=== PATIENT | male | born 1940 | race Caucasian/White ===

== ENCOUNTER 2018-11-02 13:58 | Inpatient (IN) | payer MEDICARE ==
[~2018-11-02] VITALS: Ht 172.7 cm; Wt 93.9 kg
[2018-11-03 00:30] VITALS: BP 152/69
[2018-11-03] MEDS ORDERED: TEMAZEPAM 7.5 MG CAPSULE PO PRN (00:30)
[2018-11-03] MEDS ORDERED: MAGNESIUM HYDROXIDE 30 ML UDC PO PRN (00:30)
[2018-11-03] MEDS ORDERED: LORAZEPAM 0.5 MG TABLET PO PRN (00:30)
[2018-11-03] MEDS ORDERED: ACETAMINOPHEN 325 MG TABLET PO PRN (00:30)
[2018-11-03] MEDS ORDERED: MAG HYDROX/AL HYDROX/SIMETH 30 ML UDC PO PRN (00:30)
--- NOTE | 2018-11-03 00:30 | NUR ---
GPS RN ADMITTING NOTES: ADMITTED A 78YO MALE FROM [facility] ON 5150 HOLD FOR DANGER TO SELF. PER HOLD THE PATIENT IS EXPRESSING SUICIDAL IDEATION, WANTING TO KILL HIMSELF, WITH A PLAN TO BUY A GUN AND SHOOT HIMSELF. PATIENT IS UNDER THE CARE OF DR. RICKS AND JOSETTE LILLY FOR [facility]. PATIENT WALKED INTO THE UNIT AMBULATORY, USHERED BY AMBULANCE STAFF, THEN USHERED INTO THE ROOM. UPON FACE TO FACE EVALUATION PATIENT PRESENTS ALERT AND ORIENTED X1-2, UNKEMPT, DISHEVELED, DISORGANIZED, CONFUSED. DELUSIONAL AND PARANOID. PATIENT INSISTS ON LEAVING THE UNIT.SECURITY PERSONNEL WERE CALLED TO HELP STAFF IN MAKING THE PATIENT SETTLE IN HIS BED. PATIENT REFUSED TO HAVE HIS VITAL SIGNS TAKEN INITIALLY. PATIENT REFUSED TO HAVE HIS FACE PHOTO TAKEN, HE FURTHER REFUSED TO HAVE FULL SKIN AND BODY ASSESSMENT CHECKED, HOWEVER NURSE WAS ABLE TO VISUALLY CHECKED THE REDNESS ON HIS SACRAL AREA, NO OPEN WOUND NOTED. AROUND 0050, PATIENT STARTED TO BE SCREAMING AND YELLING AT STAFF, KICKING AND GRABBING THE CLOTHES OF THE STAFF,REFUSING TO FOLLOW DIRECTIONS. NURSE TRIED TO DO HIS ACCUCHECK FOR BASELINE PURPOSES, PATIENT ALMOST HIT THE STAFF THAT WAS HELPING HIM. FIXTURE REPAIRER FABRICATORMARIAN CALLED DR. RICKS FOR AN IM SHOT. HE THEN GAVE ORDERS FOR ZYPREXA 5MG IM, GIVEN ORDERED. PATIENT WAS BEING HELD BY STAFF AND SECURITY PERSONNEL. PATIENT REFUSED TO HAVE VITAL SIGNS RECHECKED. CARE PLAN INITIATED. Q15 MIN CHECKS INITIATED. BELONGINGS AND CONTRABAND CHECKED. SAFETY AND FALL PRECAUTIONS OBSERVED. WILL FOLLOW UP FOR MED RECON. WILL MONITOR PATIENT FOR MOOD, SAFETY AND BEHAVIOR. WILL ENDORSE TO DAY SHIFT NURSE.
[2018-11-03] MEDS ORDERED: OLANZAPINE 10 MG VIAL IM ONE (01:00)
[2018-11-03] MEDS ORDERED: GLIP5TAB13 PO (04:01)
[2018-11-03] MEDS ORDERED: METF-442 PO (04:01)
[2018-11-03 08:00] VITALS: BP 117/58
[2018-11-03 08:10] LABS: ALANINE AMINOTRANSFERASE 23 U/L (12-78); ALBUMIN 3.3 g/dL (3.4-5.0); ALKALINE PHOSPHATASE 110 U/L (46-116); ASPARTATE AMINOTRANSFERASE 20 U/L (15-37); BILIRUBIN,TOTAL 0.8 mg/dL (0.2-1.0); CALCIUM, SERUM 8.5 mg/dL (8.5-10.1); CARBON DIOXIDE 22 mmol/L (21-32); CHLORIDE 102 mmol/L (98-107); CREATININE 1.7 mg/dL (0.6-1.3); POTASSIUM 4.8 mmol/L (3.5-5.1); SODIUM SERUM 133 mmol/L (136-145); TOTAL PROTEIN, SERUM 6.4 g/dL (6.4-8.2); UREA NITROGEN, BLOOD 32 mg/dL (7-18)
[2018-11-03 08:22] LABS: GLUCOSE 406 mg/dL (74-106)
[2018-11-03] MEDS ORDERED: DEXTROSE 50%-WATER 50 ML DISP.SYRIN IV PRN (13:00)
--- NOTE | 2018-11-03 13:00 | NUR ---
GPS.RR. PT REFUSING ACCU CHECK AT THIS TIME. WILL TRY AGAIN. INSURANCE CLAIMS ADJUSTER AWARE FO CRITICAL HIGH.
[2018-11-03] MEDS: BLOOD SUGAR DIAGNOSTIC 1 EACH STRIP VI SCH ×3 (14:09→21:55)
[2018-11-03] MEDS: *INSULIN REGULAR(HUMULIN R)HUM 100 UNIT/ML VIAL SQ PRN (14:23)
[2018-11-03 16:00] VITALS: BP 129/81
[2018-11-03] MEDS: INSULIN REGULAR, HUMAN 100 UNIT/ML 3 ML VIAL SQ PRN (17:32)
[2018-11-03 20:17] VITALS: BP 121/51
--- NOTE | 2018-11-03 22:10 | NUR ---
GPS RN NOTE: PATIENT BLOOD SUGAR LEVEL 102MG/DL, NO INSULIN NEEDED PER SLIDING SCALE. NO S/S OF HYPER/HYPOGLYCEMIA NOTED. SNACKS AT BEDSIDE. WILL CONTINUE TO MONITOR.
[2018-11-04 07:26] LABS: BASOPHILS % (AUTO) 0.4 % (0.0-2.0); EOSINOPHILS % (AUTO) 2.9 % (0.0-6.0); HEMATOCRIT 49 % (39-51); LYMPHOCYTES # (AUTO) 2.1 /CMM (0.8-4.8); LYMPHOCYTES % (AUTO) 31.5 % (20.0-44.0); MEAN CORPUSCULAR HGB CONC 35 g/dl (31.0-36.0); MEAN CORPUSCULAR VOLUME 92 fL (80-96); MONOCYTES # (AUTO) 0.6 /CMM (0.1-1.30); MONOCYTES % (AUTO) 9.1 % (2.0-12.0); NEUTROPHILS # (AUTO) 3.8 /CMM (1.8-8.9); NEUTROPHILS % (AUTO) 56.1 % (43.0-81.0); PLATELET COUNT (AUTO) 140 /CMM (150-450); RED BLOOD CELL COUNT(AUTO) 5.37 MIL/uL (4.5-6.0); WHITE BLOOD COUNT (AUTO) 6.8 K/uL (4.3-11.0)
[2018-11-04 07:48] LABS: ALBUMIN 3.2 g/dL (3.4-5.0); CALCIUM, SERUM 9.1 mg/dL (8.5-10.1); CARBON DIOXIDE 28 mmol/L (21-32); CHLORIDE 103 mmol/L (98-107); CREATININE 1.2 mg/dL (0.6-1.3); GLUCOSE 193 mg/dL (74-106); MAGNESIUM 1.7 mg/dL (1.8-2.4); PHOSPHORUS 3.1 mg/dL (2.5-4.9); SODIUM SERUM 140 mmol/L (136-145); UREA NITROGEN, BLOOD 21 mg/dL (7-18)
[2018-11-04] MEDS: BLOOD SUGAR DIAGNOSTIC 1 EACH STRIP VI SCH ×4 (07:53→21:58)
[2018-11-04 08:00] VITALS: BP 111/75
[2018-11-04 08:02] LABS: CHOLESTEROL 190 mg/dL (<200); CREATINE KINASE, TOTAL 318 U/L (39-308); HDL CHOLESTEROL 53 mg/dL (40-60); LDL 114 mg/dL (0-99); THYROID STIMULATING HORMONE 0.579 uIU/mL (0.358-3.74); TRIGLYCERIDES 140 mg/dL (30-150)
[2018-11-04] MEDS: SERTRALINE HCL 25 MG TABLET PO SCH (08:33)
--- NOTE | 2018-11-04 11:00 | NUR ---
INITIAL DISCHARGE PLAN" Patient wishes to return home to [address] [place] [address] [place] [address] . SW will help form a safe and proper discharge in collaboration with .
--- NOTE | 2018-11-04 11:01 | NUR ---
GAYATHRI contacted pts ex Grisel [phone] to inform her pt is currently hospitalized. Grisel stated she is aware and also stated she will be coming this afternoon to visit pt. Grisel also informed GAYATHRI that pt does not have help at home. GAYATHRI stated that she will refer pt to home health once discharged. Grisel agreed.
[2018-11-04] MEDS ORDERED: MAGNESIUM OXIDE 400 MG TABLET PO ONE (12:00)
[2018-11-04] MEDS: INSULIN REGULAR, HUMAN 100 UNIT/ML 3 ML VIAL SQ PRN ×2 (12:29→17:44)
[2018-11-04 16:00] VITALS: BP 137/71
[2018-11-04 20:05] VITALS: BP 136/70
[2018-11-04] MEDS: *INSULIN REGULAR(HUMULIN R)HUM 100 UNIT/ML VIAL SQ PRN (22:53)
--- NOTE | 2018-11-05 07:43 | NUR ---
GPS RN NOTES RECEIVED PT LAYING IN BED, RESTING COMFORTABLY. PT AWAKE AND ALERT. RESPIRATIONS ARE EVEN AND UNLABORED, NOT IN ANY ACUTE DISTRESS NOTED. PT DENIES ANY PAIN AT THIS TIME, NO C/O SOB, N/V. NO IV ACCESS. PT ABLE TO MAKE NEEDS KNOWN. SAFETY MEASURES ARE IN PLACE. WILL MONITOR THROUGHOUT SHIFT FOR CONTINUITY OF CARE.
[2018-11-05 08:00] VITALS: BP 149/65
[2018-11-05 08:18] LABS: CALCIUM, SERUM 8.8 mg/dL (8.5-10.1); CARBON DIOXIDE 29 mmol/L (21-32); CHLORIDE 102 mmol/L (98-107); CREATININE 0.9 mg/dL (0.6-1.3); GLUCOSE 172 mg/dL (74-106); MAGNESIUM 1.8 mg/dL (1.8-2.4); POTASSIUM 3.4 mmol/L (3.5-5.1); SODIUM SERUM 139 mmol/L (136-145); UREA NITROGEN, BLOOD 17 mg/dL (7-18)
[2018-11-05] MEDS: BLOOD SUGAR DIAGNOSTIC 1 EACH STRIP VI SCH ×4 (08:18→21:29)
[2018-11-05] MEDS: SERTRALINE HCL 25 MG TABLET PO SCH (08:18)
[2018-11-05] MEDS: INSULIN REGULAR, HUMAN 100 UNIT/ML 3 ML VIAL SQ PRN ×3 (08:19→16:58)
[2018-11-05] MEDS ORDERED: POTASSIUM CHLORIDE 20 MEQ TAB.PRT.SR PO SCH (12:06)
[2018-11-05 12:09] LABS: PTH, INTACT 23 pg/mL (15-65)
--- NOTE | 2018-11-05 13:36 | NUR ---
DISCHARGE PLANNING: SW and Psychiatrist Dr. Turcios (covering Dr. Krishnan on this present day) met with pt to discuss pt being discharged to a SNF short term before returning home due to pt not having support at home or anyone to care for him. Pt was confused by the conversation and did not comprehend what was being told to him.
[2018-11-05 14:12] LABS: *SPE A/G RATIO 1.2 (0.7-1.7); *SPE ALBUMIN 3.3 g/dL (2.9-4.4); *SPE ALPHA-1-GLOBULIN 0.2 g/dL (0.0-0.4); *SPE ALPHA-2-GLOBULIN 0.7 g/dL (0.4-1.0); *SPE BETA GLOBULIN 1.1 g/dL (0.7-1.3); *SPE GLOBULIN, TOTAL 2.8 g/dL (2.2-3.9); *SPE M-SPIKE Not Observed g/dL (Not Observed); *SPEGAMMA GLOBULIN 0.8 g/dL (0.4-1.8)
[2018-11-05 16:00] VITALS: BP 141/63
[2018-11-05 20:00] VITALS: BP 148/84
[2018-11-05] MEDS: *INSULIN REGULAR(HUMULIN R)HUM 100 UNIT/ML VIAL SQ PRN (21:31)
--- NOTE | 2018-11-05 21:35 | NUR ---
ACCUCHECK 137 MG/DL, 2 UNITS REGULAR INSULIN SC ADMINISTERED, HAD A SANDWICH FOR SNACKS.
--- NOTE | 2018-11-05 22:46 | NUR ---
OFFERED SLEEPING PILL AND ASKED FOR IT, HE REFUSED AFTER MEDICATION WAS PREPARED, STATED, " I'M SORRY, I GOT CONFUSED."
[2018-11-06 07:19] LABS: CARBON DIOXIDE 26 mmol/L (21-32); CHLORIDE 101 mmol/L (98-107); GLUCOSE 183 mg/dL (74-106); POTASSIUM 3.9 mmol/L (3.5-5.1); SODIUM SERUM 137 mmol/L (136-145); UREA NITROGEN, BLOOD 23 mg/dL (7-18)
[2018-11-06] MEDS: BLOOD SUGAR DIAGNOSTIC 1 EACH STRIP VI SCH ×4 (07:31→21:16)
[2018-11-06 08:00] VITALS: BP 151/74
[2018-11-06] MEDS: SERTRALINE HCL 25 MG TABLET PO SCH ×3 (08:59→10:01)
[2018-11-06] MEDS: INSULIN REGULAR, HUMAN 100 UNIT/ML 3 ML VIAL SQ PRN ×3 (09:05→17:48)
--- NOTE | 2018-11-06 11:56 | NUR ---
PROBABLE CAUSE HEARING: Pts 5250 was not upheld and is now placed on VOLUNTARY admission. Pt wishes to return home.
--- NOTE | 2018-11-06 12:04 | NUR ---
DISCHARGE PLANNING: GAYATHRI contacted pts ex Grisel [phone] to inform her pts hold was not upheld and is now placed on VOLUNTARY admission. Ex stated that she is unable to pick pt up and transport home and stated pt should not be going home and instead be discharged to a SNF. I explained that pt is refusing to go a SNF. Ex- stated pt returning home is a bad idea. GAYATHRI explained that chief environmental commitment officer stated pt has the right to return home and hospital is unable to force pt to be discharged to a SNF.
--- NOTE | 2018-11-06 12:13 | NUR ---
TRANSPORT: GAYATHRI contacted [place] [facility] Certified Ophthalmic Assistant with [facility] [phone] to coordinate discharge and he stated he would return GAYATHRI's call.
--- NOTE | 2018-11-06 12:52 | NUR ---
GAYATHRI faxed SNF referral to Maeve, office services coordinator at [facility] Address: [address] [place] [address] for review.
--- NOTE | 2018-11-06 13:43 | NUR ---
PT. WITH CERTIFICATION REVIEW HEARING. THE PATIENT, AFTER TALKING WITH THE ADVOCATE, HAS DECIDED TO: BE PRESENT AT THE CERTIFICATION REVIEW HEARING. AFTER CONSIDERING ALL THE EVIDENCE PRESENTED, THE HEARING REFEREE FINDS THAT: THERE IS NOT PROBABLE CAUSE TO BELIEVE THAT THE PERSON, A RESULT OF A MENTAL DISORDER IS: A DANGER TO OTHERS OR GRAVELY DISABLED. THE PATIENT MUST BE RELEASED OR REMAIN AT THE FACILITY ON VOLUNTARY BASIS. PT. SIGNED VOLUNTARY. PSYCHIATRIST MADE AWARE. Addendum: 11/06/18 at 1350 by FUAD DIAZ RN ADDENDUM: NOT ALSO A DANGER TO SELF.
--- NOTE | 2018-11-06 14:31 | NUR ---
APS REPORT: GAYATHRI contacted [facility] [phone] and spoke with Linda who took report for self-neglect. GAYATHRI informed her pt will be discharged home tomorrow Friday11/07/18 and needs support at home. Linda took report.
--- NOTE | 2018-11-06 14:33 | NUR ---
SW received a call from [place] [facility] [employer] Mill Operator with [facility] [phone] who stated he has scheduled transportation for pt home for tomorrow at 11:00am.
--- NOTE | 2018-11-06 14:34 | NUR ---
GAYATHRI contacted pts ex Grisel [phone] to inform her pt will be transported home tomorrow by [facility]. GAYATHRI also informed her she filed an APS report.
--- NOTE | 2018-11-06 14:59 | NUR ---
GAYATHRI faxed home health referral to [facility] Address: [address] .
--- NOTE | 2018-11-06 15:00 | NUR ---
DISCHARGE NOTE: Pt will be discharged on Wednesday November 07, 2018 at 11:00am via [facility] home to [address] [address] [place], [place] [address] . Pts ex Grisel [phone] has been notified and does not agree with discharge plan. Pts mood is euthymic with congruent affect. Pt denied visual/auditory hallucinations and denied suicidal/homicidal ideation. SW faxed home health referral and also filed and APS report. Pt was given a referral to [facility] [address], [place] [phone] where he stated he will present himself on Friday November 09, 2018 at 9:00am for an intake. Pt will also schedule a follow up appointment with Histotechnologist Supervisor: Dr. Aris Squires [address] [place] [phone]. The multidisciplinary exitcare form was done, printed, signed, and given to the patient.
[2018-11-06 16:00] VITALS: BP 144/68
--- NOTE | 2018-11-06 19:15 | NUR ---
GPS/RN-NOTES URINE WAS COLLECTED AND SEND TO LAB.PATIENT IN THE ROOM AWAKE,ALERT LAYING IN BED,NO ACUTE DISTRESS NOTED. ENDORSE TO NEXT SHIFT FOR CONTINUITY OF CARE.
[2018-11-06 20:00] VITALS: BP 136/66
[2018-11-06 20:00] LABS: CREATININE, URINE 141.5 MG/DL (30.0-125.0)
--- NOTE | 2018-11-06 20:38 | NUR ---
C/O HEADACHE, TYLENOL 650 MG TAB PO GIVEN.
[2018-11-06] MEDS: *INSULIN REGULAR(HUMULIN R)HUM 100 UNIT/ML VIAL SQ PRN (21:23)
[2018-11-07] MEDS: BLOOD SUGAR DIAGNOSTIC 1 EACH STRIP VI SCH ×2 (07:31→12:04)
[2018-11-07 08:00] VITALS: BP 129/95
[2018-11-07] MEDS: INSULIN REGULAR, HUMAN 100 UNIT/ML 3 ML VIAL SQ PRN ×2 (08:08→12:18)
[2018-11-07] MEDS: SERTRALINE HCL 25 MG TABLET PO SCH (08:12)
--- NOTE | 2018-11-07 10:44 | NUR ---
Dr. Turcios gave a discharge order to the charge nurse, without distress, denies suicidal and homicidal. Manny Delacruz made of the discharge and said ok to discharge and d/c the accu check and sliding scale and d/c the prn meds. Pt. instructed on meds to continue at home and verbalize understanding and encouraged to make a follow up with psych and medical doctors and agreed. Pt. signed the discharge papers and belongings ready. Addendum: 11/07/18 at 1738 by FUAD DIAZ RN Called ex- Grisel and nobody's answering and left a message.
--- NOTE | 2018-11-07 12:50 | NUR ---
Spoke to Manny Delacruz about the discharge and he provided a prescription.
--- NOTE | 2018-11-07 13:15 | NUR ---
Pt. left the unit with belongings and paper works and picked up by Thomas from [facility]. Pt. is for discharge to home. Pt. provided with psych and medical prescriptions, instructed on meds to continue at home and verbalized understanding and advised to make a follow up with psych and medical doctors and agreed. Left the unit without distress, ambulatory and escorted by staff to the lobby. V/S taken : BP 149/74, AL 70, RR 18, Temp 98.0 and oxygen sat 95%.
== END 2018-11-07 13:15 | disposition home or self-care (01) | DRG 881 ==
LOC: GPS 23:43
PROVIDERS: ADMIT Psychiatry & Neurology Psychiatry; ATTEND Psychiatry & Neurology Psychosomatic Medicine
DX: F32.9 Major depressive disorder, single episode, unspecified (principal); N17.9 Acute kidney failure, unspecified; E11.65 Type 2 diabetes mellitus with hyperglycemia; E44.1 Mild protein-calorie malnutrition; E87.1 Hypo-osmolality and hyponatremia; F29 Unspecified psychosis not due to a substance or known physiological condition; F41.9 Anxiety disorder, unspecified; D69.6 Thrombocytopenia, unspecified; E66.9 Obesity, unspecified; E78.5 Hyperlipidemia, unspecified; E87.6 Hypokalemia; F03.90 Unspecified dementia, unspecified severity, without behavioral disturbance, psychotic disturbance, mood disturbance, and anxiety; I35.0 Nonrheumatic aortic (valve) stenosis; Z79.84 Long term (current) use of oral hypoglycemic drugs; E86.9 Volume depletion, unspecified; Z68.31 Body mass index [BMI] 31.0-31.9, adult; E88.09 Other disorders of plasma-protein metabolism, not elsewhere classified
CPT/HCPCS: 36415; 80048-TC; 80053-TC; 80061-TC; 82040-TC; 82550-TC; 82570-TC; 82962-TC; 83735-TC; 83970; 84100-TC; 84155; 84155-TC; 84165; 84300-TC; 84443-TC; 85025-TC; 87081-TC; J1815; J3490